=== PATIENT | male | born 1975 | race Two or more races ===

== ENCOUNTER 2023-06-20 13:28 | Emergency (ER) | payer BC ==
[~2023-06-20] VITALS: Ht 188 cm; Wt 80.7 kg
[2023-06-20] MEDS ORDERED: CYCLOBENZAPRINE 10 MG TABLET ONE (13:48)
[2023-06-20] MEDS ORDERED: KETOROLAC TROMETHAMINE INJ 30 MG/ML VIAL ONE (13:48)
[2023-06-20] MEDS: KETOROLAC TROMETHAMINE INJ 30 MG/ML VIAL IM ONE (13:53)
[2023-06-20] MEDS: CYCLOBENZAPRINE 10 MG TABLET PO ONE (13:53)
[2023-06-20] MEDS ORDERED: CYCL5TAB PO (14:01)
[2023-06-20 14:07] VITALS: BP 105/73; TEMP 97.9; O2SAT 99
== END 2023-06-20 14:08 | disposition home or self-care (01) ==
LOC: ER 13:38
DX: M25.511 Pain in right shoulder (principal); F32.A Depression, unspecified; Z60.2 Problems related to living alone
CPT/HCPCS: 99283; 96372; J1885